=== PATIENT | male | born 1990 | race Caucasian/White ===

== ENCOUNTER 2020-03-31 09:59 | Emergency (ER) | payer SELFPAY ==
[~2020-03-31] VITALS: Ht 182.9 cm; Wt 86.4 kg
[2020-03-31 10:54] LABS: EOS # 0.1 (0.04-0.40); EOS % 0.6 % (0.0-4.0); HEMATOCRIT 45.4 % (42.0-52.0); MEAN CELL VOLUME 85 fl (78-100); MEAN CORPUSCULAR HEMOGLOBIN 28 pg (27-31); MEAN CORPUSCULAR HGB CONC 33 g/dL (33-37); MEAN PLATELET VOLUME 9.8 fl (7.4-10.4); MONO # 0.5 (0.20-0.80); PLATELET COUNT 321 K/mm3 (130-400); RED BLOOD COUNT 5.35 M/mm3 (4.20-5.60); RED CELL DISTRIBUTION WIDTH 12.1 % (11.5-14.5); WHITE BLOOD COUNT 12.5 K/mm3 (4.8-10.8)
[2020-03-31 10:59] LABS: CALCIUM 9.5 mg/dL (8.3-10.5)
[2020-03-31 11:01] LABS: TOTAL PROTEIN 8.4 g/dL (6.4-8.3)
[2020-03-31 11:02] LABS: NEU # 9.9 (1.40-6.50); TOTAL BILIRUBIN 0.9 mg/dL (0.2-1.2)
[2020-03-31 12:02] LABS: ERYTHROCYTE SEDIMENTATION RATE 23 mm/hr (0-15)
[2020-03-31] MEDS ORDERED: EPIPEN 2-PAK1 MG/ML MR (14:49)
[2020-03-31] MEDS ORDERED: PREDNISONE20 MG PO (14:56)
[2020-03-31 15:03] VITALS: BP 150/91
== END 2020-03-31 15:04 | disposition home or self-care (01) ==
LOC: ED 09:59
PROVIDERS: Physician Assistant
DX: T78.2XXA Anaphylactic shock, unspecified, initial encounter (principal); F17.210 Nicotine dependence, cigarettes, uncomplicated
CPT/HCPCS: J0171; J1200; J7030; J7512

== ENCOUNTER 2020-04-06 21:16 | Emergency (ER) | payer SELFPAY ==
[~2020-04-06 21:16] MED LIST: EPIPEN 2-PAK1 MG/ML MR; PREDNISONE20 MG PO
[2020-04-06 21:43] LABS: EOS # 0.1 (0.04-0.40); EOS % 0.5 % (0.0-4.0); HEMATOCRIT 44.9 % (42.0-52.0); HEMOGLOBIN 14.9 g/dL (13.5-18.0); LYMPH# 4.1 (1.50-4.00); MEAN CELL VOLUME 83 fl (78-100); MEAN CORPUSCULAR HEMOGLOBIN 28 pg (27-31); MEAN CORPUSCULAR HGB CONC 33 g/dL (33-37); MEAN PLATELET VOLUME 9.5 fl (7.4-10.4); MONO # 0.7 (0.20-0.80); PLATELET COUNT 378 K/mm3 (130-400); RED CELL DISTRIBUTION WIDTH 12.2 % (11.5-14.5)
[2020-04-06 21:54] LABS: POTASSIUM 3.9 mmol/L (3.5-5.1); SODIUM 138 mmol/L (136-145)
[2020-04-06 21:55] LABS: CALCIUM 8.8 mg/dL (8.3-10.5); GLUCOSE 96 mg/dL (75-110)
[2020-04-06 21:57] LABS: CARBON DIOXIDE 22 mmol/L (22-29)
[2020-04-06 22:08] LABS: TROPONIN-I < 0.03 ng/mL (<0.030)
[2020-04-06 22:38] LABS: ERYTHROCYTE SEDIMENTATION RATE 15 mm/hr (0-15)
[2020-04-07 00:35] VITALS: BP 173/104
== END 2020-04-07 00:35 | disposition short-term general hospital (02) ==
LOC: ED 21:16
PROVIDERS: Nurse Practitioner Family
DX: T78.2XXA Anaphylactic shock, unspecified, initial encounter (principal); T78.3XXA Angioneurotic edema, initial encounter; Z20.822 Contact with and (suspected) exposure to COVID-19; Z79.52 Long term (current) use of systemic steroids; X58.XXXA Exposure to other specified factors, initial encounter; Y92.009 Unspecified place in unspecified non-institutional (private) residence as the place of occurrence of the external cause
CPT/HCPCS: J0171; J1200; J2250; J2930; J3010; J3490; J7030; J7040

== ENCOUNTER → 2020-09-26 | Outpatient (CLI) | payer OTHER ==
[2020-09-26 15:02] LABS: POTASSIUM 3.5 mmol/L (3.5-5.1)
[2020-09-26 15:03] LABS: CALCIUM 9.3 mg/dL (8.3-10.5)
[2020-09-26 15:04] LABS: TOTAL PROTEIN 7.8 g/dL (6.4-8.3)
[2020-09-26 15:06] LABS: TOTAL BILIRUBIN 0.6 mg/dL (0.2-1.2)
== END ==
LOC: LAB 14:37
PROVIDERS: Internal Medicine
DX: E06.3 Autoimmune thyroiditis (principal); E05.90 Thyrotoxicosis, unspecified without thyrotoxic crisis or storm; E04.9 Nontoxic goiter, unspecified

== ENCOUNTER → 2021-01-09 | Outpatient (CLI) | payer OTHER ==
[2021-01-09 14:06] LABS: ALBUMIN 4.6 g/dL (3.5-5.0); POTASSIUM 4.1 mmol/L (3.5-5.1)
[2021-01-09 14:07] LABS: CALCIUM 9.8 mg/dL (8.3-10.5)
[2021-01-09 14:08] LABS: TOTAL PROTEIN 8.5 g/dL (6.4-8.3)
[2021-01-09 14:10] LABS: TOTAL BILIRUBIN 0.4 mg/dL (0.2-1.2)
== END ==
LOC: LAB 13:45
PROVIDERS: Internal Medicine
DX: E06.3 Autoimmune thyroiditis (principal); E05.90 Thyrotoxicosis, unspecified without thyrotoxic crisis or storm; E04.9 Nontoxic goiter, unspecified

== ENCOUNTER → 2021-08-13 | Outpatient (CLI) | payer OTHER ==
[2021-08-13 09:31] LABS: ALBUMIN 4.3 g/dL (3.5-5.0); POTASSIUM 4.1 mmol/L (3.5-5.1)
[2021-08-13 09:32] LABS: CALCIUM 9.8 mg/dL (8.3-10.5)
[2021-08-13 09:33] LABS: TOTAL PROTEIN 7.8 g/dL (6.4-8.3)
[2021-08-13 09:35] LABS: TOTAL BILIRUBIN 0.9 mg/dL (0.2-1.2)
[2021-08-13 09:47] LABS: BASO # 0.02 K/mm3 (0.02-0.10); EOS # 0.08 K/mm3 (0.04-0.40); EOS % 0.9 % (0.0-4.0); HEMATOCRIT 49.5 % (42.0-52.0); HEMOGLOBIN 16.3 g/dL (13.5-18.0); LYMPH# 1.64 K/mm3 (1.50-4.00); MEAN CELL VOLUME 92 fl (78-100); MEAN CORPUSCULAR HEMOGLOBIN 30 pg (27-31); MEAN CORPUSCULAR HGB CONC 33 g/dL (33-37); MONO # 0.59 K/mm3 (0.20-0.80); NEU # 6.71 K/mm3 (1.40-6.50); PLATELET COUNT 298 K/mm3 (130-400); RED BLOOD COUNT 5.39 M/mm3 (4.20-5.60); RED CELL DISTRIBUTION WIDTH 12.2 % (11.5-14.5); WHITE BLOOD COUNT 9.1 K/mm3 (4.8-10.8)
[2021-08-13 10:53] LABS: ERYTHROCYTE SEDIMENTATION RATE 2 mm/hr (0-15)
[2021-08-13 21:56] LABS: T3 TOTAL 93 ng/dL (35-193)
== END ==
LOC: LAB 08:55
PROVIDERS: Nurse Practitioner
DX: Z86.39 Personal history of other endocrine, nutritional and metabolic disease (principal)

== ENCOUNTER → 2022-04-24 | Outpatient (CLI) | payer OTHER | LOC: RAD 16:46 | DX: S62.306A Unspecified fracture of fifth metacarpal bone, right hand, initial encounter for closed fracture (principal); X58.XXXA Exposure to other specified factors, initial encounter ==

== ENCOUNTER → 2023-04-21 | Outpatient (CLI) | payer OTHER ==
[2023-04-21 09:59] LABS: HEMOGLOBIN 16.4 g/dL (13.5-18.0); MEAN PLATELET VOLUME 9.2 fl (7.4-10.4); RED BLOOD COUNT 5.43 M/mm3 (4.20-5.60); RED CELL DISTRIBUTION WIDTH 12.3 % (11.5-14.5); WHITE BLOOD COUNT 8.4 K/mm3 (4.8-10.8)
[2023-04-21 10:07] LABS: ALBUMIN 4.8 g/dL (3.5-5.0)
[2023-04-21 10:08] LABS: CALCIUM 10.2 mg/dL (8.3-10.5)
[2023-04-21 10:09] LABS: TOTAL PROTEIN 8.9 g/dL (6.4-8.3)
[2023-04-21 10:11] LABS: TOTAL BILIRUBIN 0.4 mg/dL (0.2-1.2)
== END ==
LOC: LAB 09:51
PROVIDERS: Family Medicine
DX: K92.1 Melena (principal); E06.3 Autoimmune thyroiditis

== ENCOUNTER → 2024-01-19 | Outpatient (CLI) | payer BC | LOC: RAD 09:19 | DX: S82.892A Other fracture of left lower leg, initial encounter for closed fracture (principal); X58.XXXA Exposure to other specified factors, initial encounter ==

== ENCOUNTER → 2024-01-20 | Outpatient (CLI) | payer BC | LOC: RAD 10:02 | DX: S86.112A Strain of other muscle(s) and tendon(s) of posterior muscle group at lower leg level, left leg, initial encounter (principal); X58.XXXA Exposure to other specified factors, initial encounter ==